=== PATIENT | female | born 1955 | race Caucasian/White ===

== ENCOUNTER 2020-11-10 09:04 | Outpatient (REF) | payer BC, SELFPAY ==
--- NOTE | ~2020-11-10 | MM_ITS ---
EXAMINATION: MM SCREENING DIGITAL BREAST TOMOSYNTHESIS, BILATERAL CLINICAL INFORMATION: Screening. Asymptomatic. The lifetime risk of breast cancer based on the Tyrer-Cuzick Model is 4%. COMPARISON: Mammography: 09/16/2017, 04/27/2012 TECHNIQUE: Digital breast tomosynthesis is performed in both the craniocaudal and mediolateral oblique views along with computer-aided detection (CAD). Synthesized 2D images are generated from the tomosynthesis. Additional exaggerated left CC view is provided. FINDINGS: There are scattered areas of fibroglandular density (ACR BI-RADS breast composition Category b). Breast tissue composition borders on predominantly fatty. Background stromal and fibroglandular densities are stable. There is no significant mass or architectural abnormality or abnormal calcifications. The axilla and skin contours are unremarkable. No significant changes from prior exams. MM/MM tomosynthesis screening BI IMPRESSION: No mammographic evidence of malignancy. ASSESSMENT: BI-RADS 1: Negative RECOMMENDATION: Routine annual mammography screening. This patient's information was entered into a reminder system with a target due date for their next mammogram.
== END 2020-11-10 09:05 | disposition home or self-care (01) ==
LOC: HO.MAMMO 09:04
PROVIDERS: Visit Provider Nurse Practitioner Adult Health
DX: Z12.31 Encounter for screening mammogram for malignant neoplasm of breast (principal)
CPT/HCPCS: 77063; 77067

== ENCOUNTER → 2021-10-29 13:42 | Outpatient (BNVA) | payer BC, SELFPAY | PROVIDERS: PCP Family Medicine; Visit Provider Internal Medicine | DX: Z13.89 Encounter for screening for other disorder (principal) ==

== ENCOUNTER 2021-11-04 13:54 | Outpatient (REF) | payer BC, SELFPAY ==
--- NOTE | 2021-11-04 07:49 | PFT_ITS ---
FLOWS: FEV1 87% of predicted at 2.18 L. FVC 84% of predicted at 2.77 L. FEV1 to FVC ratio of 0.79. No bronchodilator response. LUNG VOLUMES: Total lung capacity 89% of predicted at 4.66 L. Residual volume 80% of predicted at 1.73 L. Slow vital capacity 96% of predicted at 2.93 L. Expiratory reserve volume 71% of predicted at 0.58 L. Diffusion capacity is normal. IMPRESSION: No obstructive or restrictive ventilatory defect. No bronchodilator response. Essentially normal pulmonary function test. Juan Esparza MD AP/MODL / [id number]
== END 2021-11-04 13:55 | disposition home or self-care (01) ==
LOC: HO.RESP 13:54
PROVIDERS: PCP Family Medicine; Visit Provider Internal Medicine
DX: R05.9 Cough, unspecified (principal); R06.00 Dyspnea, unspecified; J40 Bronchitis, not specified as acute or chronic; Z87.891 Personal history of nicotine dependence; Z79.899 Other long term (current) drug therapy
CPT/HCPCS: 94060; 94727; 94729

== ENCOUNTER → 2021-12-24 14:56 | Outpatient (BNVA) | payer BC, SELFPAY | PROVIDERS: PCP Family Medicine; Visit Provider Internal Medicine | DX: Z13.89 Encounter for screening for other disorder (principal) ==

== ENCOUNTER → 2022-06-24 15:04 | Outpatient (BNVA) | payer MEDICARE, SELFPAY | PROVIDERS: PCP Family Medicine; Visit Provider Internal Medicine | DX: R91.8 Other nonspecific abnormal finding of lung field (principal); R05.9 Cough, unspecified | CPT/HCPCS: 99212 ==

== ENCOUNTER 2022-10-02 23:15 | Emergency (ER) | payer MEDICARE, SELFPAY ==
[2022-10-02 23:48] VITALS: BP 141/64; PULSE 76; RESP 16; TEMP 36.6; O2SAT 98; BMI 34.9
[2022-10-02 23:55] VITALS: BP 154/78; PULSE 95; RESP 20; O2SAT 95
--- NOTE | 2022-10-03 00:09 | ED.GENADULT ---
HPI - General Adult General Chief complaint: Extremity Injury, Lower Stated complaint: torn lower tendon? Time Seen by Provider: 10/02/22 23:54 Source: patient and RN notes reviewed Mode of arrival: ambulatory Limitations: no limitations History of Present Illness HPI narrative: 67-year-old female presents for evaluation of right lower leg pain. Patient reports that for 5 hours prior to arrival she was walking and missed a step. She states that she hyperextended her right foot and describes a dorsiflexion motion patient complains of pain behind her right knee that radiates down into her right calf she is concerned that she tore a muscle or something. Patient rates her pain as 8/10, stabbing and worse with any kind of walking. She did not fall or have any other injuries when she injured her right leg Related Data Home Medications Medication Instructions Recorded Confirmed barium sulfate 2 % (w/v) oral ml PO 10/29/21 suspension (Readi-Cat 2) levothyroxine 50 mcg tablet 50 mcg PO DAILY 10/29/21 albuterol sulfate 90 mcg/actuation 2 inh inhalation Q6H PRN 12/24/21 aerosol inhaler budesonide-formoterol HFA 160 2 puff inhalation BID PRN 06/24/22 mcg-4.5 mcg/actuation aerosol Asthma/Bronchitis inhaler (Symbicort) loratadine 10 mg tablet 10 mg PO DAILY 06/24/22 omeprazole 10 mg capsule,delayed 20 mg PO DAILY PRN 06/24/22 release Previous Rx's Medication Instructions Recorded oxycodone-acetaminophen 5 mg-325 1 tab PO Q6H PRN pain #8 tabs 10/03/22 mg tablet (Percocet) Allergies Allergy/AdvReac Type Severity Reaction Status Date / Time erythromycin base Allergy Unknown ITCHING Verified 10/03/22 00:19 [ERYTHROMYCIN BASE] Review of Systems Constitutional: Constitutional: Reports as per HPI, Denies chills and Denies fever(s) Cardiovascular: Cardiovascular: Denies chest pain and Denies dyspnea Respiratory: Respiratory: Denies cough and Denies dyspnea PMFSH Past Medical History Medical History Asthma Bronchitis Cough Pulmonary nodules Social History Social History Patient Tobacco Use Status: Former Tobacco user Years Smoked: 5 Physical Exam ED Vital Signs: Vital Signs - 24 hr 10/02/22 23:48 10/02/22 23:55 Temperature 98 F Pulse Rate 76 95 Respiratory Rate 16 20 Blood Pressure 141/64 H 154/78 H Pulse Oximetry 98 95 Oxygen Delivery Method Room Air Room Air BMI result Body Mass Index 34.9 Const General: healthy appearing, comfortable, no acute distress, alert and awake Nutritional Appearance: well nourished Resp Effort & Inspection: normal respiratory effort, able to speak in complete sentences, no audible wheezes and not labored Auscultation: clear to auscultation bilaterally Cardio Rate: regular rate Rhythm: regular rhythm Skin General skin exam: no rashes or lesions noted and elasticity normal Extrem Other: patient has tenderness to the right popliteal fossa region, there is some tenderness over right calf. The patient has a negative modified Saldivar test and she is able to dorsiflex her right foot to approximately 80?. the patient's Achilles tendon is palpable. There is no surrounding ecchymosis to the right lower extremity. DP and PT pulses 2+ and equal. Medical Decision Making Medical Decision Making MDM Narrative: 67-year-old female presenting for evaluation of right lower leg pain to the back of her calf and knee after missing a step/ injury. She has a negative modified Saldivar test. She is able to plantar flex somewhat. Of a very low suspicion for Achilles tendon rupture. This is more likely a ruptured Franklin's cyst which she reports history of having a Franklin cyst in the area or a gastrocnemius tear. Unfortunately ultrasound is not available to evaluate for a Franklin cyst at this hour. The patient will be discharged to follow-up their PCP. She has a cane that she is comfortable using for now. Patient will be given a short course of pain medication for the next 2 days Differential Diagnosis gastrocnemius strain Gastrocnemius tear A ruptured popliteal fossa cyst Calf pain DVT Ruptured Achilles tendon Discharge Plan Discharge Clinical Impression: Pain of right calf Patient Disposition: Home, Self-Care Additional Instructions: your pain is most likely related to a calf strain. He may also have a slight tear I doubt there is a complete tear. Your Achilles tendon appears intact. You may follow-up with your primary doctor for an ultrasound of the right lower extremity to evaluate for a Franklin's cyst /ruptured Franklin cyst. May also follow-up with orthopedics, Dr. Hoskins for a calf strain Prescriptions: New oxycodone-acetaminophen [Percocet] 5-325 mg tablet 1 tab PO Q6H PRN (Reason: pain) Qty: 8 0RF Rx Instructions: Partial Fill upon patient request. No Action budesonide-formoterol [Symbicort] 160-4.5 mcg/actuation HFA aerosol inhaler 2 puff inhalation BID PRN (Reason: Asthma/Bronchitis ) loratadine 10 mg tablet 10 mg PO DAILY levothyroxine 50 mcg tablet 50 mcg PO DAILY Readi-Cat 2 2 % (w/v) suspension PO albuterol sulfate 90 mcg/actuation HFA aerosol inhaler 2 inh inhalation Q6H PRN omeprazole 10 mg capsule,delayed release(/EC) 20 mg PO DAILY PRN Referrals: So Hoskins MD [Physician] -
[2022-10-03] MEDS: oxyCODONE HCl Immed Release 5 MG TABLET 10 MG PO (00:23)
== END 2022-10-03 00:32 | disposition home or self-care (01) ==
LOC: HO.ED 10-03 00:28
PROVIDERS: Emergency Provider Internal Medicine
DX: M79.671 Pain in right foot (principal); Z79.899 Other long term (current) drug therapy
CPT/HCPCS: 99283; 99284

== ENCOUNTER 2022-12-16 12:59 | Outpatient (REF) | payer MEDICARE, SELFPAY ==
--- NOTE | ~2022-12-16 | CT_ITS ---
EXAMINATION: CT CHEST WITHOUT CONTRAST CLINICAL INFORMATION: Abnormal finding of lung field COMPARISON: None available. TECHNIQUE: Multidetector volumetric CT imaging of the chest was done. Axial MIP volume rendering provided. Sagittal and coronal reformatted images were obtained. This CT examination was performed using dose optimization techniques as appropriate, variously including the following: *Automated exposure control *Adjustment of mA and/or kV according to patient size (this includes techniques or standardized protocols for targeted exams where dose is matched to indication/reason for exam; i.e. 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 3 mm right upper lobe nodule axial image 134 series 5. 2 mm right upper lobe nodule axial image 204, and 237 series 5. 2 mm peripheral or subpleural left lower lobe nodule adjacent to the fissure axial image 199 series 5. 2 mm peripheral left lower lobe nodule axial image 301 series 5. MEDIASTINUM: The mediastinum is normal. CORONARY ARTERY CALCIFICATION: None visualized on this study. PLEURA: There is no pleural effusion. No pleural mass or thickening. AXILLA: No lymphadenopathy. UPPER ABDOMEN: Fatty liver. The gallbladder is been removed. Left renal cysts. No imaging follow-up recommended. OSSEOUS STRUCTURES: Unremarkable. CT/CT chest wo IV con IMPRESSION: Small pulmonary nodules or micronodules largest measuring 3 mm. According to the UPDATED 2017 Fleischner Society recommendations, the advised follow-up imaging for less than 6 mm solid nodule: Low risk, no chest CT follow-up and high risk, optional chest CT follow-up in one year. Fleischner guidelines were followed.
== END 2022-12-16 13:00 | disposition home or self-care (01) ==
LOC: HO.CT 12:59
PROVIDERS: Visit Provider Internal Medicine
DX: R91.1 Solitary pulmonary nodule (principal); J45.909 Unspecified asthma, uncomplicated
CPT/HCPCS: 71250

== ENCOUNTER → 2022-12-28 15:05 | Outpatient (BNVA) | payer MEDICARE, SELFPAY | PROVIDERS: PCP Family Medicine; Visit Provider Internal Medicine | DX: R05.9 Cough, unspecified (principal); R91.8 Other nonspecific abnormal finding of lung field | CPT/HCPCS: 99212 ==

== ENCOUNTER 2023-08-02 01:04 | Emergency (ER) | payer MEDICARE, SELFPAY ==
--- NOTE | ~2023-08-02 | XR_ITS ---
EXAMINATION: XR CHEST CLINICAL INFORMATION: Cough COMPARISON: 12/16/2022 TECHNIQUE: PA view of the chest FINDINGS: Lungs are clear. No consolidation, pneumothorax, or pleural effusion. Cardiac and mediastinal contours are normal. Pulmonary vasculature is unremarkable. Osseous structures are unremarkable. XR/XR chest 1V IMPRESSION: No acute cardiopulmonary findings.
[2023-08-02 01:12] VITALS: BP 149/88; PULSE 97; RESP 17; TEMP 36.3; O2SAT 97; BMI 39.0
[2023-08-02 01:35] LABS: MANUAL DIFF FLAG NO
[2023-08-02 01:36] LABS: Basophils Absolute Auto 0.1 X10*3/uL (0.0-0.2); Basophils Percent Auto 1.4 % (0-2); Eosinophils Absolute Auto 0.6 X10*3/uL (0.0-0.4); Eosinophils Percent Auto 6.7 % (0-4); Hematocrit 42.8 % (37.0-47.0); Hemoglobin 14.4 g/dl (12.0-16.0); Imm Gran Abs Auto 0.03 X10*3/uL (0.00-0.03); Imm Gran Pct Auto 0.3 % (0.0-0.4); Lymphocytes Absolute Auto 2.1 X10*3/uL (1.2-4.9); Mean Corpuscular HGB Conc 33.6 g/dl (31.0-35.0); Mean Corpuscular Hemoglobin 30.8 pg (27.0-33.0); Mean Corpuscular Volume 91.6 fL (80.0-98.0); Mean Platelet Volume 9.9 fL (9.4-12.3); Monocytes Absolute Auto 1.2 X10*3/uL (0.1-1.2); Monocytes Percent Auto 13.2 % (2-11); Neutrophils Absolute Auto 4.8 x10*3/uL (2.0-8.3); Neutrophils Percent Auto 54.4 % (45-73); Platelet Count 234 X10*3/uL (160-400); Red Blood Count 4.67 X10*6/uL (4.20-5.50); Red Cell Distribution Width 13.9 % (11.0-16.0); White Blood Count 8.8 X10*3/uL (4.8-10.8)
[2023-08-02 01:54] LABS: Alanine Aminotransferase 165 U/L (0-31); Albumin Level 4.2 g/dL (3.5-5.0); Alkaline Phosphatase 73 U/L (39-117); Anion Gap 12 (12-20); Aspartate Amino Transferase 106 U/L (5-31); Bilirubin Total 0.5 mg/dL (0.0-1.0); Blood Urea Nitrogen 14 mg/dL (9-16); Calcium 9.6 mg/dL (8.4-10.2); Carbon Dioxide 23 mmol/L (22-29); Chloride 109 mmol/L (96-108); Creatinine Clr Calc Pharmacy 65.4; Estimated Glomerular Filt Rate 55; Glucose Random 181 mg/dL (60-115); Sodium 140 mmol/L (135-145); Total Protein 6.9 g/dL (6.5-8.0)
[2023-08-02 02:12] LABS: Influenza A PCR NEGATIVE (Negative); Influenza B PCR NEGATIVE (Negative); Resp Syncy Virus RNA Qual PCR NEGATIVE (Negative); SARS COV2 PCR INHOUSE POSITIVE (Negative)
[2023-08-02 06:28] VITALS: BP 186/86; PULSE 90; RESP 16; TEMP 36.7; O2SAT 96
--- NOTE | 2023-08-02 08:22 | ED_ITS ---
HPI - General Adult General Chief complaint: Upper Respiratory Symptoms Stated complaint: Sob Time Seen by Provider: 08/02/23 07:55 Source: patient Mode of arrival: ambulatory Limitations: no limitations History of Present Illness HPI narrative: 68-year-old female presents to the emergency department with complaints of runny nose, intermittent cough for the past 2-3 months, patient reports however that yesterday she started having a hacking cough, fatigue, malaise, myalgia, wheezing particularly at night and sensation of shortness of breath when she is wheezing. No shortness of breath with exertion however. Patient denies chest pain, fevers, chills, nausea, vomiting, headache, vision changes, dizziness, weakness, recent sick contacts. Patient taking loratadine and Benadryl for symptoms with little to no relief Related Data Home Medications Medication Instructions Recorded Confirmed levothyroxine 50 mcg tablet 50 mcg PO DAILY 10/29/21 12/28/22 albuterol sulfate 90 mcg/actuation 2 inh inhalation Q6H PRN 12/24/21 12/28/22 aerosol inhaler loratadine 10 mg tablet 10 mg PO DAILY 06/24/22 12/28/22 omeprazole 10 mg capsule,delayed 20 mg PO DAILY PRN 06/24/22 12/28/22 release Previous Rx's Medication Instructions Recorded albuterol sulfate 90 mcg/actuation 2 inh inhalation Q4-6H PRN 08/02/23 breath activated powder inhaler shortness of breath or wheezing #1 ea benzonatate 100 mg capsule 100 mg PO BID PRN cough #20 caps 08/02/23 prednisone 50 mg tablet 50 mg PO DAILY 5 days #5 tabs 08/02/23 Allergies Allergy/AdvReac Type Severity Reaction Status Date / Time erythromycin base Allergy Unknown ITCHING Verified 08/02/23 01:12 [ERYTHROMYCIN BASE] Review of Systems 2 Review of Systems: Yes all other systems are reviewed and are negative PMFSH Past Medical History Attestation statement: The following information was validated with the patient. Source: old records reviewed and nursing notes reviewed Onset Date is defined in the Problem List Problems that require an onset date and time if occurred within 24 hrs of arrival to the ED Aortic Dissection and Rupture; Neurologic impairment; Cardiopulmonary Arrest; Endotracheal Intubation; Insertion or Replacement of Mechanical Circulatory Assist Device Medical History Pulmonary nodules Bronchitis Asthma Cough Social History Social History Patient Tobacco Use Status: Former Tobacco user Years Smoked: 5 Advance Directives: No Physical Exam ED Vital Signs: Vital Signs - 24 hr 08/02/23 01:12 08/02/23 06:28 Temperature 97.4 F 98.0 F Pulse Rate 97 90 Respiratory Rate 17 16 Blood Pressure 149/88 H 186/86 H Pulse Oximetry 97 96 Oxygen Delivery Method Room Air Room Air BMI result Body Mass Index 39.0 vss Appearance: Alert.? Oriented X3.? No acute distress.? Patient speaking in full sentences without difficulty. Head: Normocephalic, atraumatic, no step-offs or deformities Eyes: Pupils equal, round and reactive to light.? Neck: Normal inspection.? Neck supple.? CVS: Normal heart rate and rhythm.? Pulses normal.? Respiratory: No respiratory distress.? Faint wheezing to bilateral lower lobes on expiration Abdomen: Soft and nontender.? Skin: Skin warm and dry.? Normal skin color.? Normal skin turgor.? Extremities: No lower extremity edema.? No calf ttp. 5/5 strength to bilateral upper and lower extremities Back: No midline tenderness, no C-spine tenderness, full range of motion, no CVA tenderness bilaterally Neuro: Oriented X 3.? No motor deficit.? No sensory deficit. CN 2-12 intact Course Reevaluation(s) Reevaluation #1: Positive COVID likely contributing to patient's symptoms. Educated patient on diagnosis and treatment plan, answered all question, patient verbalizes understanding. At this time patient will be discharged home, advised to return with new or worsening symptoms. Educated on worrisome signs and symptoms and when to return. At this time I feel comfortable discharge home.\ Onset of symptoms unclear as patient has been having lingering symptoms for the past few months, no true indication for antiviral therapy. Time: 08:32 Medical Decision Making Medical Decision Making MDM Narrative: ?46-year-old female presenting with viral symptoms ongoing for the past few days. ??Physical examination faint expiratory wheezing to bilateral lower lobes ?This is likely flu versus COVID versus RSV versus other viral illness? Versus bronchitis versus allergies.? Unlikely pneumonia, PE, ACS, threat to airway. Unlikely metabolic derangements. Plan- viral test? Differential Diagnosis Differential Diagnoses: The differential diagnosis associated with the presentation includes ?This is likely flu versus COVID versus RSV versus other viral illness? Versus bronchitis versus allergies.? Unlikely pneumonia, PE, ACS, threat to airway. Unlikely metabolic derangements. Admission/Observation Consideration of admission/observation: Escalation of care including admission/observation considered Unlikely Lab Data MDM Lab Attestation statement: I reviewed the patient's lab results. 08/02/23 01:30 08/02/23 01:30 Labs: Lab Results 08/02/23 Range/Units 01:30 WBC 8.8 (4.8-10.8) X10*3/uL RBC 4.67 (4.20-5.50) X10*6/uL Hgb 14.4 (12.0-16.0) g/dl Hct 42.8 (37.0-47.0) % MCV 91.6 (80.0-98.0) fL MCH 30.8 (27.0-33.0) pg MCHC 33.6 (31.0-35.0) g/dl RDW 13.9 (11.0-16.0) % Plt Count 234 (160-400) X10*3/uL MPV 9.9 (9.4-12.3) fL Immature Gran % (Auto) 0.3 (0.0-0.4) % Neut % (Auto) 54.4 (45-73) % Lymph % (Auto) 24.0 (20-40) % [place] % (Auto) 13.2 H (2-11) % Eos % (Auto) 6.7 H (0-4) % Baso % (Auto) 1.4 (0-2) % Lymph # (Auto) 2.1 (1.2-4.9) X10*3/uL [place] # (Auto) 1.2 (0.1-1.2) X10*3/uL Eos # (Auto) 0.6 H (0.0-0.4) X10*3/uL Baso # (Auto) 0.1 (0.0-0.2) X10*3/uL Abs Immat Gran (auto) 0.03 (0.00-0.03) X10*3/uL Absolute Neuts (auto) 4.8 (2.0-8.3) x10*3/uL Absolute Nucleated RBC 0.000 (0.0-0.012) X10*3/uL Nucleated RBC % (auto) 0.0 (0.0-0.2) /100WBC Sodium 140 (135-145) mmol/L Potassium 4.0 (3.3-5.1) mmol/L Chloride 109 H (96-108) mmol/L Carbon Dioxide 23 (22-29) mmol/L Anion Gap 12 (12-20) BUN 14 (9-16) mg/dL Creatinine 1.01 (0.5-1.4) mg/dL Estim Creat Clear Calc 65.4 Estimated GFR 55 Random Glucose 181 H (60-115) mg/dL Calcium 9.6 (8.4-10.2) mg/dL Total Bilirubin 0.5 (0.0-1.0) mg/dL AST 106 H (5-31) U/L ALT 165 H (0-31) U/L Alkaline Phosphatase 73 (39-117) U/L Total Protein 6.9 (6.5-8.0) g/dL Albumin 4.2 (3.5-5.0) g/dL Influenza Type A (PCR) NEGATIVE (Negative) Influenza Type B (PCR) NEGATIVE (Negative) RSV RNA Qual (PCR) NEGATIVE (Negative) SARS-CoV-2 RNA (RT-PCR) POSITIVE A (Negative) Prescription Management I considered prescription management with: Other (Steroids, albuterol inhaler) Chronic Conditions Patient?s care impacted by: Other (Reactive airway disease) Critical Care Time Critical Care Time Critical Care Time: No Discharge Plan Discharge Clinical Impression: COVID-19, Allergies Patient Disposition: Home, Self-Care Instructions: COVID-19 (Coronavirus Disease 2019) (ED) Additional Instructions: Take your medications as prescribed. If you were prescribed antibiotics today, it is important that you take your medication to their entirety, do not skip any doses, do not finish them early. Today you tested positive for COVID-19. Take Ibuprofen or Tylenol as needed for fevers or body aches. Quarantine for 5 days and ensure you wear a mask. After 5 days you should wear a mask for 5 days after that. Practice social distancing and good hand hygiene. Drink plenty of fluids. Follow-up with your primary care provider this week. Return to the emergency department with new or worsening symptoms. In case of emergency call 911 You can purchase a pulse oximeter from your local pharmacy or grocery store, and monitor your oxygen saturation if it goes below 94% you should return to the emergency department for further evaluation. Prescriptions: New albuterol sulfate 90 mcg/actuation aerosol powdr breath activated 2 inh inhalation Q4-6H PRN (Reason: shortness of breath or wheezing) Qty: 1 0RF benzonatate 100 mg capsule 100 mg PO BID PRN (Reason: cough) Qty: 20 0RF prednisone 50 mg tablet 50 mg PO DAILY 5 Days Qty: 5 0RF No Action loratadine 10 mg tablet 10 mg PO DAILY levothyroxine 50 mcg tablet 50 mcg PO DAILY albuterol sulfate 90 mcg/actuation HFA aerosol inhaler 2 inh inhalation Q6H PRN omeprazole 10 mg capsule,delayed release(DR/EC) 20 mg PO DAILY PRN Referrals: Miguel A Robin MD [Primary Care Provider] - 2 days Stand Alone Forms: Work/School Release Interventions: ED Discharge Assessment Last Done: 08/02/23 08:19 Discharge Date/Time: 08/02/23 08:19
== END 2023-08-02 08:19 | disposition home or self-care (01) ==
PROVIDERS: Emergency Provider Emergency Medicine Emergency Medical Services; PCP Family Medicine
DX: U07.1 COVID-19 (principal); R06.02 Shortness of breath; R05.9 Cough, unspecified; M79.10 Myalgia, unspecified site; Z79.899 Other long term (current) drug therapy
CPT/HCPCS: 0241U; 36415; 71045; 80053; 85025; 99282; 99283

== ENCOUNTER 2024-01-02 10:46 | Outpatient (AMB) | payer MEDICARE, SELFPAY ==
[2024-01-02 10:50] VITALS: BP 120/84; PULSE 76; O2SAT 98; BMI 37.8
--- NOTE | 2024-01-02 10:50 | A.OFFVIS_ITS ---
Vital Signs 01/02/24 10:50 Height 5 ft 5 in Weight 227 lb BMI 37.8 BP 120/84 Blood Pressure Location Lt brachial Position Sitting Pulse 76 Pulse Source Pulse Oximeter Pulse Oximetry (%) 98 Oxygen Delivery Method Room Air Intake Visit Reasons: pulmonary nodules Intake Note: pt is here for follow up and states she is feeling good, she retired in October, she did have a cough that lasted months, but gone now. dx covid, pt thinks she was given symbicort from pcp and this really helps. 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 She was seen by me for ongoing cough. Following a acute viral infection, and it responded quickly to use of Symbicort Pulmonary function test was basically normal. In July 2023 she was seen in the emergency room because of nasal congestion and cough. She tested positive for COVID infection. She was treated with a short course of prednisone, and given a script for Symbicort. She quickly got better as she started taking the prednisone. She did use Symbicort for a few days and it helped. Now she has no further cough or wheezing or shortness of breath on exertion. Patient has history of smoking in the remote past when she was in her 20s. Her CT scan of the chest back in 2021 at [facility] had shown multiple, but small pulmonary nodules ( 3 mm or less in size ) She did have a repeat CT scan last year, at [facility] and there was no new change. As a few members in her family of lung cancer due to smoking, she remains somewhat concerned about this issue. [facility] Medical History Pulmonary nodules Bronchitis Asthma Cough Social History Patient Tobacco Use Status: Former Tobacco user Years Smoked: 5 Review of Systems Const All systems reviewed & are unremarkable except as noted in HPI and below Eyes Reports no additional complaints ENT Reports no additional complaints Card Denies chest pain, Denies irregular heart rhythm and Denies leg edema Resp Reports as per HPI, Denies cough and Denies wheezing GI Reports heartburn (Treated with omeprazole) Reports no additional complaints Musc Reports myalgias (Mild) and Reports other (Status post bilateral knee replacement) Skin/Breast Reports system reviewed and no additional complaints, except as documented Neuro Reports no additional complaints Psych Reports no additional complaints Aller/Immun Denies wheezing Physical Exam Vital Signs: Last Vital Signs Pulse 76 01/02/24 10:50 BP 120/84 01/02/24 10:50 Pulse Ox 98 01/02/24 10:50 Oxygen Delivery Method Room Air 01/02/24 10:50 BMI result Body Mass Index 37.8 Const General: comfortable, no acute distress, alert and awake Orientation/consciousness: patient oriented x3 HEENT Head: Yes normal to inspection General nose exam: No nasal polyps present and No nasal discharge present Face and sinus: Yes sinuses nontender Mouth: oropharynx normal Throat: Yes posterior oropharynx normal Eyes General: appearance normal, both eyes and all related structures Neck Neck: Yes normal visual inspection, Yes no lymphadenopathy, Yes trachea midline and Yes no JVD Thyroid: Thyroid normal Chest Chest palpation & inspection: normal inspection of the chest, normal palpation of entire chest wall and no tenderness Resp Other: Percussion note is resonant. Breath sounds equal on both sides, and normal. No wheezes or rhonchi are present today. Cardio Palpation: normal PMI Rate: regular rate Rhythm: regular rhythm Heart sounds: no gallops and no murmurs Peripheral pulses: Peripheral pulses 2+ throughout GI Palpation (GI): Soft to palpation, nontender, No hepatosplenomegaly present and no masses Auscultation: normal bowel sounds Back/Spine/Pelvis Thoracic/Lumbar Spine: thoracic and lumbar spine normal to inspection Skin General skin exam: no rashes or lesions noted Neuro General: patient oriented x3 and no focal motor deficits Cranial nerves: Yes CN's II-XII intact bilaterally Extrem General: Yes normal to inspection, Yes no clubbing, cyanosis or edema, Yes no calf tenderness and Yes other (Scars over both knees due to previous by bilateral knee replacement) Psych Appearance: grossly normal and well kempt Speech and movement: Normal speech and movement present Assessment & Plan Assessment & Plan (1) Cough: Comment: This patient is prone to have persistent cough for a few weeks following any acute respiratory infection ( postinfectious cough ) It response well to use of inhaled steroids / long-acting bronchodilator. In her case Symbicort works good, which she uses only p.r.n.. Code(s): R05.9 - Cough, unspecified Category: Medical Plan: Keep Symbicort 80-4.5 MDI on hand and use 2 puffs Q 12 hours only p.r.n.. (2) Asthma: Comment: Her cough may be due to asthma variant/ reactive Airways usually following any upper respiratory infection. She may have such episodes once or twice a year. Code(s): J45.909 - Unspecified asthma, uncomplicated Category: Medical Plan: Use Symbicort 80-4.52 puffs Q 4-6 hours only p.r.n. (3) Pulmonary nodules: Comment: Small, multiple pulmonary nodules, size 2-3 mm , nonspecific. These nodules seem to be benign, may be due to old nonspecific infection. CT SCAN AT [facility] LAST YEAR SHOWED MULTIPLE MICRO NODULES, THE LARGEST BEING 3 MM. CONSIDERED BENIGN. HOWEVER PATIENT REMAINS CONCERNED BECAUSE A FEW FAMILY MEMBERS OF LUNG CANCER. Code(s): R91.8 - Other nonspecific abnormal finding of lung field Category: Medical Plan: WILL REPEAT CT SCAN OF THE CHEST 1 MORE TIME AND IF THERE IS NO CHANGE THEN, SHE DOES NOT NEED ANY YEARLY SCANS., Orders: Orders CT chest wo IV con Today R91.8 - Other nonspecific abnormal finding of lung field Coding Level of Care Code Est Pt Level 3 (17020) Diagnoses Cough R05.9 Asthma J45.909 Pulmonary nodules R91.8
== END 2024-01-02 11:14 | disposition home or self-care (01) ==
PROVIDERS: PCP Family Medicine; Visit Provider Internal Medicine
DX: R05.9 Cough, unspecified (principal); J45.909 Unspecified asthma, uncomplicated; R91.8 Other nonspecific abnormal finding of lung field
CPT/HCPCS: 99213

== ENCOUNTER → 2024-01-02 10:46 | Outpatient (BNVA) | payer MEDICARE, SELFPAY | PROVIDERS: PCP Family Medicine; Visit Provider Internal Medicine | DX: J45.909 Unspecified asthma, uncomplicated (principal); R05.9 Cough, unspecified; R91.8 Other nonspecific abnormal finding of lung field | CPT/HCPCS: 99212 ==

== ENCOUNTER 2024-03-01 12:46 | Outpatient (REF) | payer MEDICARE, SELFPAY ==
--- NOTE | ~2024-03-01 | CT_ITS ---
EXAMINATION: CT CHEST WITHOUT CONTRAST CLINICAL INFORMATION: Abnormal lung field finding COMPARISON: 12/16/2022. TECHNIQUE: Multidetector volumetric CT imaging of the chest was done. Axial MIP volume rendering provided. Sagittal and coronal reformatted images were obtained. This CT examination was performed using dose optimization techniques as appropriate, variously including the following: *Automated exposure control *Adjustment of mA and/or kV according to patient size (this includes techniques or standardized protocols for targeted exams where dose is matched to indication/reason for exam; i.e. extremities or head) *Use of iterative reconstruction technique DLP: 396 mGy-cm FINDINGS: SUB ACUTE CARE NURSE: Clear lungs. LUNGS: Trachea and bronchi are patent. Mild biapical pleural parenchymal thickening. No consolidations. Nonspecific RLL groundglass opacity, 5:390 Nodules: RUL: No change 3 mm with mild groundglass halo, 5:120 WARREN: Stable 2 mm, 5:103. Multiple other 2 mm or less stable pulmonary nodules. MEDIASTINUM: Unremarkable thyroid. Nonspecific lymph nodes. Mild increased right peritracheal lymph node now measuring 1 cm. Heart is not enlarged. No pericardial. Nonaneurysmal aorta with mild atherosclerotic calcifications. No enlarged pulmonary arteries. CORONARY ARTERY CALCIFICATION: None visualized on this study. PLEURA: There is no pleural effusion. 8 mm nodularity, 5:107 is unchanged. AXILLA: No lymphadenopathy. UPPER ABDOMEN: Diffuse hypodensity to the liver. Status post cholecystectomy. Partial visualization of left upper pole renal cyst OSSEOUS STRUCTURES: Unremarkable. CT/CT chest wo IV con IMPRESSION: 1. Stable bilateral pulmonary nodules. No new or enlarging pulmonary nodules. 2. Mild increase in right paratracheal lymph node. 2. Hepatic steatosis. Fleischner guidelines were followed. Electronically signed by: Raysa German MD 03/27/2024 02:30 PM EDT
== END 2024-03-01 12:47 | disposition home or self-care (01) ==
LOC: HO.CT 12:46
PROVIDERS: PCP Family Medicine; Visit Provider Internal Medicine
DX: R91.8 Other nonspecific abnormal finding of lung field (principal)
CPT/HCPCS: 71250